=== PATIENT | female | born 1985 | race Caucasian/White ===

== ENCOUNTER 2016-08-14 05:28 | Day surgery (SDC) | payer MEDICAID ==
[2016-08-14] VITALS (13 sets, daily range): BP systolic 107–119; BP diastolic 58–72; PULSE 72–88; RESP 11–20; Ht 154.9 cm; Wt 88.9 kg
[~2016-08-14] VITALS: Ht 154.9 cm; Wt 88.9 kg
[2016-08-14] MEDS ORDERED: PROPOFOL 20 ML ONE (07:11)
[2016-08-14] MEDS ORDERED: ROCURONIUM 50 MG INJ ONE (07:11)
[2016-08-14] MEDS ORDERED: SUCCINYLCHOLINE CHLORIDE 100 MG/5 ML SYG IV ONE (07:11)
[2016-08-14] MEDS ORDERED: MIDAZOLAM 1 MG/ML 2 ML INJ ONE (07:11)
[2016-08-14] MEDS ORDERED: LIDOCAINE 1% (MDV) 20 ML INJ ONE (07:12)
[2016-08-14] MEDS ORDERED: FENTAnyl 50 MCG/ML VIAL ONE ×2 (07:12→08:32)
[2016-08-14] MEDS ORDERED: ONDANSETRON 4 MG INJ ONE (07:12)
[2016-08-14] MEDS ORDERED: DEXAMETHASONE 4 MG/ML 1 ML INJ ONE (07:12)
[2016-08-14 07:14] LABS: ADD SCAN DIFF NO
[2016-08-14 07:16] LABS: BASOPHIL # 0.1 10^3/ul (0.0-0.1); BASOPHILS % 0.6 % (0.0-2.0); EOSINOPHILS # 0.2 10^3/ul (0.0-0.5); EOSINOPHILS % 2.6 % (0.0-7.0); HEMATOCRIT 37.9 % (37.0-47.0); HEMOGLOBIN 12.7 g/dl (12.0-16.0); LYMPHOCYTES # 2.6 10^3/ul (0.8-2.9); LYMPHOCYTES % 28.8 % (15.0-51.0); MEAN CORPUSCULAR HEMOGLOBIN 28.9 pg (29.0-33.0); MEAN CORPUSCULAR HGB CONC 33.5 g/dl (32.0-37.0); MEAN CORPUSCULAR VOLUME 86.1 fl (82.0-101.0); MONOCYTE # 0.6 10^3/ul (0.3-0.9); MONOCYTES % 6.7 % (0.0-11.0); NEUTROPHIL # 5.5 10^3/ul (1.6-7.5); PLATELET COUNT 323 10^3/UL (140-415); RED CELL DISTRIBUTION WIDTH 12.9 % (11.5-14.5); WHITE BLOOD COUNT 8.9 10^3/ul (4.8-10.8)
[2016-08-14] MEDS ORDERED: ACETAMINOPHEN 1000MG/100ML IV 100 ML ONE (07:18)
[2016-08-14] MEDS ORDERED: CEFAZOLIN 1 GM INJ ONE (07:20)
[2016-08-14 07:31] LABS: INR 0.91; PROTIME 12.2 Sec (12.2-14.2)
[2016-08-14 07:32] LABS: PARTIAL THROMBOPLASTIN TIME 26.9 Sec (25.0-35.0)
[2016-08-14] MEDS ORDERED: ATEN-51 PO (07:39)
--- NOTE | 2016-08-14 07:41 | HP ---
Date/Time of Note Date/Time of Note DATE: 08/14/16 TIME: 07:36 Assessment/Plan VTE Prophylaxis VTE Prophylaxis Intervention: ambulation, SCD's Lines/Catheters IV Catheter Type (from Nrs): Saline Lock HPI/ROS Admit Date/Time Admit Date/Time 08 14 2016 Hx of Present Illness 30 YO requesting permanent sterilization. Risks and benefits and indications and alternatives discussed patients. risks including but not limited to infection, bleeding, damage to other organs such as intestines or bladder, blood transfusion and possibility of failure of procedure discussed with patient. I also explained to her this procedures is permanent and not reversible. other reversible contraceptive methods also discussed with patient. patient also told that our plan is Laparoscopic BTL, but some times the surgery may be converted to Exploratory Laparotomy. Informed consent obtained Allergies: NKDA Medications: none ROS: Significant as above Past Medical History: none Past Surgical History: None Physical Exam: Afebrile, VSS NAD A&O Heart: RRR Lung: CTA B Abdomen: Soft, Not tender Extremities: No edema Assessment: Patients desires permanent sterilization Plan: Laparoscopic BTL, Possible Exploratory Laparotomy. Exam/Review of Systems Vital Signs Vitals Vital Signs Date Time Temp Pulse Resp B/P Pulse Ox O2 Delivery O2 Flow Rate FiO2 08/14/16 07:23 97.7 88 20 111/72 98 Room Air Labs Result Diagram: 08/14/16 0705 RUTHY FIERRO MD Aug 14, 2016 07:41
[2016-08-14] MEDS ORDERED: BUPIVACAINE 0.25%/EPI (SDV) 30 ML INJ ONE (08:07)
[2016-08-14] MEDS ORDERED: GLYCOPYRROLATE 0.4 MG INJ ONE (08:21)
[2016-08-14] MEDS ORDERED: NEOSTIGMINE 3 MG/3 ML SYRINGE ONE (08:21)
[2016-08-14] MEDS ORDERED: MIDAZOLAM 1 MG/ML 2 ML INJ IV PRN (08:30)
[2016-08-14] MEDS ORDERED: LABETALOL HCL 20MG INJ IV PRN (08:30)
[2016-08-14] MEDS ORDERED: FENTAnyl 50 MCG/ML VIAL IV PRN ×2 (08:30)
[2016-08-14] MEDS ORDERED: ONDANSETRON 4 MG INJ IV PRN (08:30)
[2016-08-14] MEDS ORDERED: DIPHENHYDRAMINE 50 MG INJ IV PRN (08:30)
[2016-08-14] MEDS ORDERED: hydrALAzine 20 MG INJ IV PRN (08:30)
[2016-08-14] MEDS ORDERED: HYDROmorphONE (0.2 MG/ML) 10ML SYG IV PRN ×3 (08:30)
--- NOTE | 2016-08-14 08:50 | OPR ---
Date/Time of Note Date/Time of Note DATE: 08/14/16 TIME: 08:48 Operative Report Free Text/Dictation DATE OF OPERATION: 08/14/2016 PREOPERATIVE DIAGNOSIS: Patient desires permanent sterilization. She declined Essure. She desires laparoscopic tubal fulguration. POSTOPERATIVE DIAGNOSIS: Patient desires permanent sterilization. She declined Essure. She desires laparoscopic tubal fulguration. OPERATION PERFORMED: Laparoscopic fulguration and transection of bilateral tubes. SURGEON: Neyda Torres MD ESTIMATED BLOOD LOSS: Minimal. COMPLICATIONS: None. FINDINGS: Normal tubes, ovaries bilaterally. Normal uterus. CONSENT: Please see my preop H and P consent in the office for the consent process. DESCRIPTION OF PROCEDURE: She was taken to operating room and general anesthesia was induced. She was prepped and draped in the usual sterile fashion in dorsal lithotomy position. Surgical time-out was done. Anterior lip of the cervix was grasped using a single-tooth tenaculum, and a HUMI was inserted in normal fashion. The tenaculum was removed. There was no bleeding from the cervix. The patient already had a Kay catheter as well. Gloves were changed. A 5 mm incision was developed inside the umbilicus. A blunt trocar was inserted in the normal fashion. Intraperitoneal position was confirmed using the laparoscope. Pneumoperitoneum was obtained. The patient was placed in Trendelenburg position. A second trocar was inserted under direct visualization of the laparoscope at the pubic hairline in the midline. A 5 cm mid ampullary region of the right tube was coagulated. Complete desiccation of the entire diameter of tube was visualized. The middle of the coagulated portion was cut. There was no bleeding. Same procedure was done on the contralateral side. All instruments removed under direct visualization of the laparoscope after pneumoperitoneum was released. There was no bleeding. Skin closed using 4-0 Monocryl. Then 10 mL 0.25% Marcaine with epinephrine was injected at the incision sites. HUMI was removed. There was no bleeding from the vagina. Patient tolerated the procedure well. Estimated Blood Loss: minimal Complications: None Pt Condition Post Procedure: stable Disposition: PACU NEYDA TORRES MD Aug 14, 2016 08:50
== END 2016-08-14 10:30 | disposition home or self-care (01) ==
LOC: SDS 05:28
PROVIDERS: ATTEND Specialist
DX: Z30.2 Encounter for sterilization (principal); I10 Essential (primary) hypertension
CPT/HCPCS: 58670; 85025; 85610; 85730; J0131; J0690; J1100; J1170; J2250; J2405; J2710; J3010; J7999; Z7512; Z7610